=== PATIENT | female | born 1940 | race Caucasian/White ===

== ENCOUNTER → 2018-10-17 11:45 | Outpatient (CLI) | payer MEDICARE, OTHER, SELFPAY ==
--- NOTE | 2018-10-17 | DI.MG.S_ITS ---
BILATERAL DIGITAL SCREENING MAMMOGRAM 3D/2D WITH CAD: 10/17/2018 CLINICAL: Routine screening. Family history of breast cancer. Comparison is made to exams dated: 10/04/2017 mammogram - [facility], 06/07/2016 mammogram, and 10/07/2014 mammogram - [facility]. There are scattered fibroglandular elements in both breasts. Current study was also evaluated with a Computer Aided Detection (CAD) system. No significant masses, calcifications, or other findings are seen in either breast. There has been no significant interval change. IMPRESSION: NEGATIVE There is no mammographic evidence of malignancy. A 1 year screening mammogram is recommended. This exam was interpreted at Station ID: [id number]. NOTE: For mammograms, a report in lay terms will be sent to the patient. Approximately 15% of breast malignancies will not be visualized mammographically. In the management of a palpable breast mass, a negative mammogram must not discourage biopsy of a clinically suspicious lesion. Electronically Signed By: Hank duncan/mark:10/17/2018 16:27:22 letter sent: Normal Exam ACR BI-RADS Category 1: Negative [id number]
== END ==
PROVIDERS: PCP Family Medicine; Visit Provider Family Medicine
DX: Z12.31 Encounter for screening mammogram for malignant neoplasm of breast (principal); Z80.3 Family history of malignant neoplasm of breast
CPT/HCPCS: 77063; 77067

== ENCOUNTER → 2018-11-28 10:56 | Outpatient (CLI) | payer MEDICARE, OTHER, SELFPAY ==
--- NOTE | 2018-11-28 | DI.MRI.S_ITS ---
PROCEDURE: MR HEAD/BRAIN WO/W CON INDICATIONS: Ataxia, unspecified TECHNIQUE: Noncontrast axial T1 spin echo, axial T2 fast spin echo, sagittal and axial FLAIR, coronal T2 fast spin echo, axial gradient echo, axial diffusion and ADC through the brain. After the administration of contrast, axial and coronal T1 spin echo with fat saturation through the brain. COMPARISON: [facility], MR, BRAIN W&WO CONTRAST, 12/02/2012, 12:32. FINDINGS: Image quality: Excellent. CSF spaces: Basal cisterns are patent. No extra-axial fluid collections. Ventricles are normal in size and shape. Brain: No midline shift. No intracranial bleeds or masses. No abnormal intracranial enhancement. There is cerebral volume loss for age. There is periventricular white matter chronic small vessel ischemic change. The brainstem appears normal. Diffusion-weighted images demonstrate no acute ischemic insults. No chronic ischemic insults. Normal intravascular flow voids are present. Skull and face: Calvarial marrow is normal in signal. Orbits appear normal. Sinuses: Sinuses and mastoids appear clear. IMPRESSION: Diffuse small white matter signal changes, probably represent chronic microvascular ischemic disease, versus statistically less likely demyelination or other infectious, inflammatory, neurodegenerative etiology, technically nonspecific. Overall, no definite or discernible interval change since 12/02/12. No evidence of acute ischemia. No abnormal enhancement. Dictated by: Carlos Villasenor M.D. on 11/28/2018 at 13:23 Approved by: Carlos Villasenor M.D. on 11/28/2018 at 13:27
== END ==
PROVIDERS: PCP Family Medicine; Visit Provider Nurse Practitioner Family
DX: R27.0 Ataxia, unspecified (principal)
CPT/HCPCS: 70553; A9579

== ENCOUNTER → 2019-12-11 09:16 | Outpatient (ROUT) | payer SELFPAY ==
[2019-12-13 17:30] LABS: COVID19 Sendout Not Detected (Not Detected)
== END ==
PROVIDERS: PCP Family Medicine; Visit Provider Internal Medicine
DX: Z11.59 Encounter for screening for other viral diseases (principal)
CPT/HCPCS: 87635

== ENCOUNTER → 2019-12-12 11:39 | Outpatient (ROUT) | payer SELFPAY ==
[2019-12-12 12:00] LABS: INR 1.8 (0.9-1.3)
== END ==
PROVIDERS: PCP Family Medicine; Visit Provider Internal Medicine
DX: Z79.01 Long term (current) use of anticoagulants (principal)
CPT/HCPCS: 85610

== ENCOUNTER → 2019-12-15 10:18 | Outpatient (ROUT) | payer SELFPAY ==
[2019-12-15 10:37] LABS: Prothrombin Time 33.7 SECONDS (10.1-12.7)
== END ==
PROVIDERS: PCP Family Medicine; Visit Provider Internal Medicine
DX: I48.91 Unspecified atrial fibrillation (principal)
CPT/HCPCS: 85610

== ENCOUNTER 2020-01-06 17:34 | Emergency (ER) | payer MEDICARE, OTHER, SELFPAY ==
[2020-01-06 17:43] VITALS: BP 146/59; PULSE 77; RESP 20; TEMP 36.2; O2SAT 99
--- NOTE | 2020-01-06 17:45 | DI.RAD.S_ITS ---
PROCEDURE: XR CHEST 1V INDICATIONS: Dyspnea on exertion TECHNIQUE: One view of the chest was acquired. COMPARISON: [facility], , CHEST 1 VIEW, 11/01/2012, 20:42. FINDINGS: Surgical changes and devices: Median sternotomy wires are present and appear intact. Lungs and pleura: Mild hyperaeration and flattening of the hemidiaphragms. Mild diffuse interstitial prominence. No focal consolidations. No pleural effusions or pneumothorax. Mediastinum: The cardiomediastinal contours remain stable. Heart size is normal. Bones and chest wall: No suspicious bony lesions. Overlying soft tissues appear unremarkable. IMPRESSION: 1. Findings suggestive of chronic obstructive pulmonary physiology. However, concurrent inflammatory/infectious process not excluded if clinically appropriate. 2. No focal consolidation. Dictated by: Hank Posadas M.D. on 01/06/2020 at 18:28 Approved by: Hank Posadas M.D. on 01/06/2020 at 18:30
[2020-01-06 18:02] LABS: Add Manual Diff / Slide Review NO; Basophils Absolute Auto 0 /uL (0-100); Basophils Percent Auto 0.6 % (0-2); Eosinophils Absolute Auto 100 /uL (0-450); Eosinophils Percent Auto 1.1 % (2-4); Hemoglobin 13.8 g/dL (12.0-16.0); Lymphocytes Absolute Auto 1800 /uL (1100-4500); Lymphocytes Percent Auto 23.1 % (25-40); Mean Corpuscular HGB Conc 33.7 % (30-36); Mean Corpuscular Hemoglobin 28.9 PG (26-34); Mean Corpuscular Volume 85.9 fL (80-100); Monocytes Absolute Auto 500 /uL (0-900); Monocytes Percent Auto 6.4 % (3-14); Neutrophils Absolute Auto 5300 /uL (1500-7000); Neutrophils Percent Auto 68.8 % (50-75); Platelet Count 119 X10^3/uL (150-400); Red Blood Cell Count 4.77 X10^6/uL (4.0-5.2); Red Cell Distribution Width 16.1 % (11.6-14.8); White Blood Cell Count 7.7 X10^3/uL (4.5-11.0)
[2020-01-06 18:08] LABS: Prothrombin Time 11.7 SECONDS (10.1-12.7)
[2020-01-06 18:10] LABS: PTT Partial Thromboplastin Tim 32 SECONDS (26.4-36.2)
[2020-01-06 18:13] LABS: Alanine Aminotransferase 22 IU/L (<35); Albumin 4.4 g/dL (3.5-5.0); Albumin Globulin Ratio 1.5 (1.0-2.8); Alkaline Phosphatase 111 U/L (38-126); Aspartate Aminotransferase 23 IU/L (14-36); Bilirubin Total 0.4 mg/dL (0.2-1.3); Blood Urea Nitrogen 13 mg/dL (7-17); Calcium 9.9 mg/dL (8.4-10.2); Carbon Dioxide 23 mmol/L (22-32); Chloride 106 mmol/L (98-107); Creatine Kinase 59 U/L (30-135); Estimated Glomerular Filt Rate > 60.0 mL/min (>60); Globulin 2.9 g/dL (1.7-4.1); Glucose 132 mg/dL (80-110); HEMOLYSIS < 15 (0-50); Lactate (Lactic Acid) 1.1 mmol/L (0.7-2.1); Lipase 13 U/L (23-300); Potassium 3.9 mmol/L (3.4-5.1); Sodium 139 mmol/L (137-145); Total Protein 7.3 g/dL (6.3-8.2)
--- NOTE | 2020-01-06 18:18 | ED_ITS ---
HPI - SOB/Dyspnea General Chief Complaint: Shortness of Breath/Dyspnea Stated Complaint: side cramps/ sent from [facility] Time Seen by Provider: 01/06/20 17:44 Source: patient Mode of arrival: Ambulatory Limitations: no limitations History of Present Illness HPI Narrative: 79-year-old female smoker with history of diabetes, multiple sclerosis, COPD, AFib and recent ground level fall resulting in a left wrist fracture presents at the request of her primary care provider due to an episode of shortness of breath last night. She states it was very short and she has had no symptoms today. Her hospitalization was over a month ago. She denies any dizziness, weakness or lightheadedness. She denies any chest pain, palpitations or ongoing shortness of breath. She denies any abdominal pain, nausea or vomiting. She does mention a crampy type discomfort in her left lower quadrant since her fall that comes and goes. She denies any dysuria, frequency or urgency. She denies any trouble with bowel movements such as bleeding or dark and tarry stools. MD Complaint: shortness of breath Onset (ago): hour(s) Context: trauma/injury Severity: mild Consistency/Duration: now resolved Relieving factors: nothing Exacerbating factors: nothing Known history of: COPD and diabetes Treatment prior to arrival: none Related Data Home oxygen amount: none Previous Rx's Medication Instructions Recorded betamethasone dipropionate 1 mare TOPICAL BID #1 tub 02/21/16 mupirocin 1 mare TOPICAL BID #22 gm 04/11/16 metoprolol tartrate 25 mg PO BID #180 tab 09/21/16 cyclobenzaprine 10 mg PO HS #30 tab 10/30/16 insulin NPH isoph U-100 human 1 unit SQ BID #1 vial 11/22/16 [Novolin N NPH U-100 Insulin] glipizide 10 mg PO BID #180 tab 11/28/16 clopidogrel [Plavix] 75 mg PO QDAY #90 tab 12/07/16 lisinopril [Prinivil] 20 mg PO QDAY #90 tab 12/19/16 rosuvastatin [Crestor] 40 mg PO QDAY #90 tab 12/19/16 Lancet: Device box QID #1 01/05/17 Test Strips - Freestyle box QID #1 01/08/17 amlodipine [Norvasc] 5 mg PO BID #180 tab 01/18/17 citalopram 40 mg PO QDAY #90 tab 01/18/17 gabapentin [Neurontin] 600 mg PO HS #120 cap 02/05/17 Disabled Parking Permit ea #1 02/08/17 pioglitazone [Actos] 45 mg PO QDAY #90 tab 02/21/17 bupropion HCl [Wellbutrin SR] 150 mg PO BID #60 tab 03/23/17 Allergies Allergy/AdvReac Type Severity Reaction Status Date / Time No Known Drug Allergies Allergy Verified 01/06/20 19:10 Review of Systems Constitutional Constitutional: Denies chills, Denies fatigue, Denies fever(s), Denies frequent falls, Denies lethargy and Denies weakness Eyes Eyes: Denies change in vision, Denies eye discharge, Denies irritation and Denies loss of vision ENT Ears, Nose, Mouth, and Throat: Denies change in voice, Denies dizziness, Denies neck pain, Denies sore throat and Denies throat swelling Cardiovascular Cardiovascular: Denies chest pain, Denies irregular heart rhythm, Denies light headedness, Denies palpitations, Denies dyspnea, Denies dyspnea on exertion and Denies orthopnea Respiratory Respiratory: Denies cough, Denies dyspnea, Denies dyspnea on exertion and Denies wheezing Gastrointestinal Gastrointestinal: Denies abdominal pain, Denies change in bowel habits, Denies diarrhea, Denies nausea and Denies vomiting Musculoskeletal Musculoskeletal: Denies neck pain and Denies numbness Integumentary/Breasts Skin/Breast: Denies pruritus, Denies erythema, Denies rash and Denies wounds Neurologic Neurologic: Denies behavioral changes, Denies confusion, Denies dizziness, Denies frequent falls, Denies loss of vision, Denies numbness and Denies weakness Psychiatric Psychiatric: Denies anxiety, Denies behavioral changes, Denies confusion, Denies depression, Denies homicidal ideation and Denies suicidal ideation Endocrine Endocrine: Denies fatigue, Denies flushing and Denies palpitations Hematologic/Lymphatic Hematologic/Lymphatic: Denies easy bruising Allergic/Immunologic Allergic/Immunologic: Denies urticaria, Denies throat swelling and Denies wheezing Patient History Social History Smoking Status: Current every day smoker Smoking Status: Current every day smoker alcohol intake frequency: 0-2 drinks per day Substance Use Type: does not use Exam Narrative Exam Narrative: GENERAL: [79] year old patient appears stated age. Well- nourished, well-developed patient, in mild distress. Left wrist in splint and sling HEAD: Atraumatic. Normocephalic. EYES: Pupils equal round and reactive. Extraocular motions intact. No scleral icterus. No injection or drainage. ENT: Nose without bleeding, purulent drainage. Throat without erythema, tonsillar hypertrophy or exudate. Airway patent. NECK: Trachea midline. Non tender CARDIOVASCULAR: Regular rate and rhythm without murmurs, gallops, or rubs. RESPIRATORY:Decreased breath sounds, no crackles, wheezes, or rhonchi GASTROINTESTINAL: Abdomen soft, non-tender, nondistended. EXTREMITIES: No edema or joint tenderness. Mild pain to palp of anterior iliac crest. No overlying swelling or bruising. No pain in Left hip with palpation, axial loading. She is able to lift left leg up and move side to side and internal/externally rotate without difficulty. No shortening or rotation. BACK: Nontender without deformity or crepitance. No flank tenderness. NEURO: AOx3. SKIN: No rash or erythema of visible areas Initial Vital Signs Initial Vital Signs: Vital Signs Temperature 97.1 F L 01/06/20 17:43 Pulse Rate 77 01/06/20 17:43 Respiratory Rate 20 01/06/20 17:43 Blood Pressure 146/59 H 01/06/20 17:43 Pulse Oximetry 99 01/06/20 17:43 Course Course Course Narrative: records reviewed from [place]. Images demonstration no hip fracture. Clinically she has very low suspiscion for any left hip bony injury. We discussed doing a CT, but patient refused, stating that if things didn't get better she would come back at a later date. Patient has not been SOB all day, just a brief episode yesterday. Her vitals are stable. CXR shows chronic COPD pattern. Pneumonia considered, but thought unlikely given lack of fever, cough, abnormal lung sounds, lack of elevated white count and CXR. PE considered but thought less likely given history, physical, vitals, EKG and negative DDimer. Return precautions given and questions answered to her apparent satisfaction. Orders Ordered: ED Orders 01/06/20 17:45 XR chest 1V Stat EKG-12 Lead Stat 01/06/20 17:49 Complete Blood Count AUTO DIFF Stat Comprehensive Metabolic Panel Stat D Dimer Stat Lactate (Lactic Acid) Stat Lipase Stat NT-proBNP (BNP-Adult 18+) Stat Partial Thromboplastin Time Stat Procalcitonin Stat Prothrombin Time INR Stat Troponin & CK Cardiac Panel Stat Vital Signs Vital signs: Vital Signs - 8 hr 01/06/20 17:43 01/06/20 18:37 01/06/20 19:24 Temperature 97.1 F L Pulse Rate 77 66 67 Respiratory Rate 20 13 19 Blood Pressure 146/59 H Blood Pressure [Right Arm] 188/80 H 202/98 H Pulse Oximetry 99 96 97 MDM - SOB/Dyspnea Lab Data Result diagrams: 01/06/20 17:49 01/06/20 17:49 Labs: Lab Results 01/06/20 01/06/20 01/06/20 Range/Units 17:49 17:49 17:49 WBC 7.7 (4.5-11.0) X10^3/uL RBC 4.77 (4.0-5.2) X10^6/uL Hgb 13.8 (12.0-16.0) g/dL Hct 41.0 (36-46) % MCV 85.9 (80-100) fL MCH 28.9 (26-34) PG MCHC 33.7 (30-36) % RDW 16.1 H (11.6-14.8) % Plt Count 119 L (150-400) X10^3/uL Neut % (Auto) 68.8 (50-75) % Lymph % (Auto) 23.1 L (25-40) % Johnston % (Auto) 6.4 (3-14) % Eos % (Auto) 1.1 L (2-4) % Baso % (Auto) 0.6 (0-2) % Neut # (Auto) 5300 (0622-0465) /uL Lymph # (Auto) 1800 (2850-9143) /uL Johnston # (Auto) 500 (0-900) /uL Eos # (Auto) 100 (0-450) /uL Baso # (Auto) 0 (0-100) /uL PT 11.7 (10.1-12.7) SECONDS INR 1.0 (0.9-1.3) APTT 32 (26.4-36.2) SECONDS D-Dimer (<230) ng/mL Sodium 139 (137-145) mmol/L Potassium 3.9 (3.4-5.1) mmol/L Chloride 106 (98-107) mmol/L Carbon Dioxide 23 (22-32) mmol/L BUN 13 (7-17) mg/dL Creatinine 0.65 (0.52-1.04) mg/dL Estimated GFR > 60.0 (>60) mL/min BUN/Creatinine Ratio 20.0 (6-22) Glucose 132 H (80-110) mg/dL Lactate (0.7-2.1) mmol/L Calcium 9.9 (8.4-10.2) mg/dL Total Bilirubin 0.4 (0.2-1.3) mg/dL AST 23 (14-36) IU/L ALT 22 (<35) IU/L Alkaline Phosphatase 111 (38-126) U/L Total Creatine Kinase 59 (30-135) U/L CK-MB (CK-2) TNP CK-MB (CK-2) Rel Index TNP Troponin I < 0.012 (0.01-0.034) ng/mL NT-Pro-B Natriuret Pep 225 (<450) pg/mL Total Protein 7.3 (6.3-8.2) g/dL Albumin 4.4 (3.5-5.0) g/dL Globulin 2.9 (1.7-4.1) g/dL Albumin/Globulin Ratio 1.5 (1.0-2.8) Lipase 13 L (23-300) U/L Procalcitonin (<0.5) ng/mL 01/06/20 01/06/20 01/06/20 Range/Units 17:49 17:49 17:49 WBC (4.5-11.0) X10^3/uL RBC (4.0-5.2) X10^6/uL Hgb (12.0-16.0) g/dL Hct (36-46) % MCV (80-100) fL MCH (26-34) PG MCHC (30-36) % RDW (11.6-14.8) % Plt Count (150-400) X10^3/uL Neut % (Auto) (50-75) % Lymph % (Auto) (25-40) % Johnston % (Auto) (3-14) % Eos % (Auto) (2-4) % Baso % (Auto) (0-2) % Neut # (Auto) (7486-7524) /uL Lymph # (Auto) (1890-7751) /uL Johnston # (Auto) (0-900) /uL Eos # (Auto) (0-450) /uL Baso # (Auto) (0-100) /uL PT (10.1-12.7) SECONDS INR (0.9-1.3) APTT (26.4-36.2) SECONDS D-Dimer < 200 (<230) ng/mL Sodium (137-145) mmol/L Potassium (3.4-5.1) mmol/L Chloride (98-107) mmol/L Carbon Dioxide (22-32) mmol/L BUN (7-17) mg/dL Creatinine (0.52-1.04) mg/dL Estimated GFR (>60) mL/min BUN/Creatinine Ratio (6-22) Glucose (80-110) mg/dL Lactate 1.1 (0.7-2.1) mmol/L Calcium (8.4-10.2) mg/dL Total Bilirubin (0.2-1.3) mg/dL AST (14-36) IU/L ALT (<35) IU/L Alkaline Phosphatase (38-126) U/L Total Creatine Kinase (30-135) U/L CK-MB (CK-2) CK-MB (CK-2) Rel Index Troponin I (0.01-0.034) ng/mL NT-Pro-B Natriuret Pep (<450) pg/mL Total Protein (6.3-8.2) g/dL Albumin (3.5-5.0) g/dL Globulin (1.7-4.1) g/dL Albumin/Globulin Ratio (1.0-2.8) Lipase (23-300) U/L Procalcitonin < 0.05 (<0.5) ng/mL Discharge Plan Departure Patient Disposition: Home Clinical Impression: Chronic left hip pain Discharge Date/Time: 01/06/20 19:55 Instructions: DI for Shortness of Breath Activity Restrictions/Additional Instructions: *You have been diagnosed with [brief episode of resolved shortness of breath and ongoing left groin pain] *What to do: *Take medications as directed *Follow up with your primary care provider in 2-3 days, call for an appointment. Let them know you were seen in the Emergency Department and that we ask that you be seen in follow up *Return to ER if you should have any new, worsening or concerning symptoms Prescriptions: No Action betamethasone dipropionate 0.05 % cream 1 mare Topical BID Qty: 1 RF: 0 mupirocin 2 % ointment 1 mare Topical BID Qty: 22 RF: 0 metoprolol tartrate 25 MG tablet 25 mg PO BID Qty: 180 RF: 1 cyclobenzaprine 10 MG tablet 10 mg PO HS Qty: 30 RF: 0 insulin NPH isoph U-100 human [Novolin N NPH U-100 Insulin] 100 UNIT/1 ML suspension 1 unit SQ BID Qty: 1 RF: 3 glipizide 10 MG tablet 10 mg PO BID Qty: 180 RF: 0 clopidogrel [Plavix] 75 MG tablet 75 mg PO QDAY Qty: 90 RF: 0 lisinopril [Prinivil] 20 MG tablet 20 mg PO QDAY Qty: 90 RF: 0 rosuvastatin [Crestor] 40 MG tablet 40 mg PO QDAY Qty: 90 RF: 0 Lancet: Device QID Qty: 1 RF: 2 Test Strips - Freestyle QID Qty: 1 RF: 2 citalopram 40 MG tablet 40 mg PO QDAY Qty: 90 RF: 1 amlodipine [Norvasc] 5 MG tablet 5 mg PO BID Qty: 180 RF: 1 gabapentin [Neurontin] 300 MG capsule 600 mg PO HS Qty: 120 RF: 0 Disabled Parking Permit Qty: 1 RF: 0 pioglitazone [Actos] 45 MG tablet 45 mg PO QDAY Qty: 90 RF: 0 bupropion HCl [Wellbutrin SR] 150 MG tablet extended release 12 hr 150 mg PO BID Qty: 60 RF: 1 Referrals: Ashley Welsh ARNP [Primary Care Provider] -
[2020-01-06 18:23] LABS: NT-proBNP (BNP-Adult 18+) 225 pg/mL (<450); Troponin I < 0.012 ng/mL (0.01-0.034)
[2020-01-06 18:31] LABS: Procalcitonin < 0.05 ng/mL (<0.5)
[2020-01-06 18:37] VITALS: BP 188/80; PULSE 66; RESP 13; O2SAT 96
[2020-01-06 19:10] LABS: D Dimer < 200 ng/mL (<230)
[2020-01-06 19:24] VITALS: BP 202/98; PULSE 67; RESP 19; O2SAT 97
== END 2020-01-06 19:55 | disposition home or self-care (01) ==
PROVIDERS: Emergency Medicine; Emergency Provider Emergency Medicine; PCP Nurse Practitioner Family
DX: R06.02 Shortness of breath (principal); M25.552 Pain in left hip; E11.9 Type 2 diabetes mellitus without complications; J44.9 Chronic obstructive pulmonary disease, unspecified; I48.91 Unspecified atrial fibrillation
CPT/HCPCS: 36415; 71045; 80053; 82550; 83605; 83690; 83880; 84145; 84484; 85025; 85379; 85610; 85730; 93005; 99284

== ENCOUNTER → 2024-05-21 13:25 | Outpatient (ROUT) | payer MEDICARE, OTHER, SELFPAY ==
[2024-05-21 13:32] LABS: Appearance Urine UA CLOUDY; Bilirubin Urine UA 1+ (NEGATIVE); Color Urine UA YELLOW; Glucose Urine UA TRACE g/dL (Negative); Ketones Urine UA TRACE (NEGATIVE); Leukocyte Esterase Urine UA 1+ (NEGATIVE); Nitrite Urine UA NEGATIVE (Negative); Occult Blood Urine UA 3+ (Negative); Protein Urine UA 3+ (Negative); Specific Gravity Urine UA >=1.030 (1.000-1.035)
[2024-05-21 13:33] LABS: pH Urine UA 5.5 (4.5-8.0)
[2024-05-21 13:34] LABS: Ictotest Urine Negative (Negative); Urine Volume 10mL (spun)
[2024-05-21 13:36] LABS: RBC Urine 30-100/HPF (0-5/HPF); WBC Urine 10-30/HPF (0-5/HPF)
[2024-05-21 13:37] LABS: Bacteria Urine None Seen; Culture Indicated Urine Specimen Cultured; Squamous Epithelial Cell Urine 0-1 /HPF (0-5/HPF)
== END ==
PROVIDERS: PCP Nurse Practitioner Family; Visit Provider Registered Nurse
DX: N39.0 Urinary tract infection, site not specified (principal)
CPT/HCPCS: 81001; 87086